=== PATIENT | female | born 1995 | race Two or more races ===

== ENCOUNTER 2022-05-03 09:57 | Emergency (ER) | payer MEDICAID, OTHER ==
[~2022-05-03] VITALS: Ht 160 cm; Wt 67.2 kg
[2022-05-03 11:49] VITALS: BP 98/52
[2022-05-03] MEDS ORDERED: DexAMETHasone SOD PHOS 10MG/1ML VIAL INJ IM ONE (12:30)
[2022-05-03] MEDS ORDERED: hydrOXYzine 25 MG TAB or CAP PO ONE (12:30)
[2022-05-03] MEDS ORDERED: HYDR-3682 PO (13:18)
== END 2022-05-03 13:27 | disposition home or self-care (01) ==
LOC: ER 09:57
DX: O26.891 Other specified pregnancy related conditions, first trimester (principal); T78.49XA Other allergy, initial encounter; Z3A.11 11 weeks gestation of pregnancy; X58.XXXA Exposure to other specified factors, initial encounter
CPT/HCPCS: 96372; 99283; J1100